=== PATIENT | female | born 1960 | race Caucasian/White ===

== ENCOUNTER → 2016-03-17 | Outpatient (CLI) | payer BC ==
[~2016-03-17] VITALS: Ht 152.4 cm; Wt 105.0 kg
[~2016-03-17] MED LIST: ASPI-232 PO; CHOL100010 PO; CYAN500T PO; DIVA500T3 PO; FOLI1TAB7 PO; GABA-113 PO; NF34 TOP; PROC1TAB5 PO; SULF500T36 PO; VITAMIN B
[2016-03-17 16:05] VITALS: Ht 152.4 cm; Wt 105.0 kg
== END | disposition home or self-care (01) ==
LOC: C.NEUR 14:24
PROVIDERS: ATTEND Internal Medicine Pulmonary Disease
DX: G47.33 Obstructive sleep apnea (adult) (pediatric) (principal); R53.83 Other fatigue

== ENCOUNTER → 2016-04-01 | Outpatient (CLI) | payer BC ==
--- NOTE | 2016-04-01 14:26 | DIAGNOSTIC IMAGING REPORT ---
MRI OF THE BRAIN WITHOUT CONTRAST CLINICAL HISTORY: Memory loss. Migraine headaches. Dizziness. COMPARISON STUDY: None. TECHNIQUE: Utilizing a 1.5 Priscila magnet and dedicated coil, multiplanar, multiecho imaging of the brain was performed without IV contrast. FINDINGS: There are no areas of restricted diffusion. No acute intracranial hemorrhage, midline shift or mass effect is present. Ventricular system is unremarkable. The basilar cisterns are patent. There are no extra-axial collections. Flow-voids for the intracranial vessels are present. This study is mildly compromised by motion artifact. Multiple white matter T2 hyperintense foci suggest mild small vessel disease. There are no intracranial masses on this unenhanced exam. There is a mucous retention cyst within left maxillary sinus. IMPRESSION: 1. No acute intracranial findings. 2. Scattered white matter T2 hyperintense foci which likely reflect small vessel disease. 3. No intracranial mass on this unenhanced exam. Electronically signed by: Main Espino M.D. 04/01/2016 2:25 PM Dictated Date/Time: 04/01/2016 2:20 PM
== END | disposition home or self-care (01) ==
LOC: C.MRIBC 13:45
PROVIDERS: ATTEND Psychiatry & Neurology Neurology
DX: R41.3 Other amnesia (principal)

== ENCOUNTER → 2016-04-27 | Outpatient (CLI) | payer BC | END | disposition home or self-care (01) | LOC: C.LABSPEC 13:30 | PROVIDERS: ATTEND Podiatrist | DX: M72.2 Plantar fascial fibromatosis (principal) ==

== ENCOUNTER → 2016-09-24 | Outpatient (CLI) | payer OTHER ==
--- NOTE | 2016-09-25 12:18 | MAMMOGRAPHY REPORT ---
BILATERAL DIGITAL SCREENING MAMMOGRAM TOMOSYNTHESIS WITH CAD: 09/24/2016 CLINICAL HISTORY: Routine screening. At the time of the exam, the patient reported tenderness and fu llness in the right breast for 4 months as well as a right breast skin rash. TECHNIQUE: Breast tomosynthesis in addition to standard 2D mammography was performed. Current study was also evaluated with a Computer Aided Detection (CAD) system. COMPARISON: Comparison is made to exams dated: 09/24/2015 mammogram, 09/21/2014 mammogram, 09/05/2013 ma mmogram, 09/02/2012 mammogram, 07/13/2011 mammogram, and 07/10/2010 mammogram - [facility] er. BREAST COMPOSITION: There are scattered areas of fibroglandular density in both breasts. FINDINGS: There are minimal vascular calcifications in the breasts. A few scattered benign-appearing microcalcifications. No suspicious mass, architectural distortion or cluster of microcalcifications is seen. IMPRESSION: ACR BI-RADS CATEGORY 1: NEGATIVE 1. Stable bilateral mammograms, without mammographic evidence of malignancy. 2. The patient reported right breast tenderness and fullness for the past 4 months as well as a skin rash. Clinical correlation is recommended and if clinically indicated, right breast ultrasound may be useful. Otherwise, a 1 year screening mammogram is recommended. The patient will receive written notificati on of the results. Approximately 10% of breast cancers are not detected with mammography. A negative mammographic report should not delay biopsy if a clinically suggestive mass is present. Viki Pollock M.D. ay/:09/24/2016 16:52:27 Rn Recruitment: Mariza LAI)(Brad), [facility] letter sent: Normal 1/2 BI-RADS Code: ACR BI-RADS Category 1: Negative
== END | disposition home or self-care (01) ==
LOC: C.MAMM 10:01
PROVIDERS: ATTEND Family Medicine
DX: Z12.31 Encounter for screening mammogram for malignant neoplasm of breast (principal)

== ENCOUNTER → 2016-10-21 | Outpatient (CLI) | payer OTHER ==
[~2016-10-21] MED LIST changes: +GADAVIST IV PRN
--- NOTE | 2016-10-21 19:33 | DIAGNOSTIC IMAGING REPORT ---
Brain and skull base MRI WITH AND WITHOUT CONTRAST HISTORY: TRIGEMINAL NEURALGIA TECHNIQUE: Multiplanar multisequence MRI of the brain and skull base were performed both before and after the intravenous administration of contrast. COMPARISON STUDY: Brain MRI 04/01/2016. FINDINGS: There are no areas of restricted diffusion to suggest acute infarction. The midline structures are intact. The mastoid air cells are clear. The ventricles and sulci are within normal limits for age. There is no mass, hematoma, midline shift. The major vascular flow-voids at the skull base are well maintained. Postcontrast sequences show no areas of abnormal enhancement. There are few scattered punctate foci of T2 hyperintensity seen within the periventricular and subcortical white matter. These are not significant change and favor mild microvascular ischemic change. The bilateral trigeminal nerves are normal in course and caliber. Meckel's caves are within normal limits. Small retention cyst within the left maxillary sinus. 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 This is demonstrated by severe cartilage space narrowing with [id number] articulation and marginal osteophytes. IMPRESSION: 1. No acute intracranial abnormality. 2. Stable nonspecific T2 hyperintense foci within the white matter of the supratentorial brain. This favors microvascular ischemic change. 3. Bilateral trigeminal nerves are normal in course and caliber. 4. 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 Electronically signed by: Matthew Heaton M.D. 10/21/2016 7:31 PM Dictated Date/Time: 10/21/2016 7:24 PM
== END | disposition home or self-care (01) ==
LOC: C.MRI 17:46
PROVIDERS: ATTEND Psychiatry & Neurology Neurology
DX: G50.0 Trigeminal neuralgia (principal); M19.90 Unspecified osteoarthritis, unspecified site

== ENCOUNTER → 2016-11-12 | Outpatient (CLI) | payer OTHER ==
[~2016-11-12] MED LIST changes: -GADAVIST IV PRN
--- NOTE | 2016-11-12 15:39 | MAMMOGRAPHY REPORT ---
ULTRASOUND OF RIGHT BREAST: 11/12/2016 CLINICAL HISTORY: 56 year-old woman reported diffuse right breast pain and a skin rash at time of scr eening on 09/24/2016. The patient reports she's been having diffuse right-sided breast pain for a fe w months. Also noted is skin rash in the inferior breast and subsequent skin biopsy. No nipple disc harge or palpable mass. No family history of breast cancer. COMPARISON: Comparison is made to exams dated: 09/24/2016 mammogram, 09/24/2015 mammogram, 09/21/2014 m ammogram, 09/05/2013 mammogram, 09/02/2012 mammogram, and 07/13/2011 mammogram - [facility] ter. FINDINGS: Real-time high-resolution ultrasound was performed throughout the entire right breast incl uding the retroareolar breast, and right axilla. The breast parenchymal echotexture is heterogeneous dense. There is no evidence of a suspicious solid or cystic right breast mass. The patient reporte d pain while scanning over the 11:00 right breast, 3 cm from the nipple, and 8:00 right breast, 6 cm from the nipple. However, no suspicious abnormality was seen in either of these locations. There is no evidence of suspicious right axillary lymphadenopathy. IMPRESSION: ACR BI-RADS CATEGORY 1: NEGATIVE There is no sonographic evidence of malignancy throughout the right breast on whole breast screening ultrasound. No suspicious right axillary lymphadenopathy is identified. Clinical follow-up is recom mended for the patient's diffuse right mastalgia. Other therapeutic options of NSAIDs, mineral suppl ements and evening primrose oil were also discussed with the patient. These results and recommendations were discussed with the patient at the time of the exam. If there are any or different symptoms at the time of next annual screening mammogram, would recommend remaini ng a diagnostic patient in case any additional supplemental mammographic views and/or ultrasound are needed. Viki Pollock M.D. ay/:11/12/2016 14:54:05 Master Baker: Dr. Viki Pollock, [facility] letter sent: Normal 1/2 BI-RADS Code: ACR BI-RADS Category 1: Negative
== END | disposition home or self-care (01) ==
LOC: C.MAMM 13:33
PROVIDERS: ATTEND Physician Assistant
DX: N64.4 Mastodynia (principal); N64.53 Retraction of nipple

== ENCOUNTER → 2016-11-18 | Outpatient (CLI) | payer OTHER | END | disposition home or self-care (01) | LOC: C.LABSPEC 09:36 | PROVIDERS: ATTEND Obstetrics & Gynecology | DX: L92.8 Other granulomatous disorders of the skin and subcutaneous tissue (principal) ==

== ENCOUNTER → 2016-11-18 | Outpatient (CLI) | payer OTHER | END | disposition home or self-care (01) | LOC: C.PAPS 10:20 | PROVIDERS: ATTEND Obstetrics & Gynecology | DX: Z12.4 Encounter for screening for malignant neoplasm of cervix (principal) ==

== ENCOUNTER → 2016-11-20 | Outpatient (CLI) | payer OTHER ==
[~2016-11-20] VITALS: Ht 157.5 cm; Wt 99.3 kg
[2016-11-20 15:06] VITALS: BP 134/90; PULSE 76; Ht 157.5 cm; Wt 99.3 kg
== END | disposition home or self-care (01) ==
LOC: C.NEUR 14:40
PROVIDERS: ATTEND Internal Medicine Pulmonary Disease
DX: G47.33 Obstructive sleep apnea (adult) (pediatric) (principal)

== ENCOUNTER 2017-03-23 17:10 | Emergency (ER) | payer BC, OTHER ==
[~2017-03-23] VITALS: Ht 157.5 cm; Wt 90.0 kg
[~2017-03-23 17:10] MED LIST changes: -FOLI1TAB7 PO; +FOLI1TAB8 PO
[2017-03-23 17:15] VITALS: TEMP 36.8; Ht 157.5 cm; Wt 90.0 kg
[2017-03-23] MEDS ORDERED: MoRPHine SULFATE 10 MG/ML CARP/VIAL IM STA (17:27)
[2017-03-23] MEDS ORDERED: ONDANSETRON 4MG OD TAB PO ONE (17:30)
[2017-03-23] MEDS ORDERED: MELO15TA4 PO (17:58)
[2017-03-23] MEDS ORDERED: GABA600T PO (18:00)
[2017-03-23] MEDS ORDERED: BACL10TA PO (18:01)
[2017-03-23] MEDS ORDERED: APRE1TAB3 PO (18:02)
[2017-03-23] MEDS ORDERED: METH500T37 PO (18:04)
--- NOTE | 2017-03-23 18:34 | DIAGNOSTIC IMAGING REPORT ---
L HIP UNILATERAL 2 VIEWS CLINICAL HISTORY: LLE pain/paresthesias pain COMPARISON: None. DISCUSSION: Mild degenerative change. No acute bony abnormality. There is no evidence for soft tissue swelling. IMPRESSION: Mild degenerative change. No acute process. The above report was generated using voice recognition software. It may contain grammatical, syntax or spelling errors. Electronically signed by: Augusto Arnold M.D. 03/23/2017 6:33 PM Dictated Date/Time: 03/23/2017 6:33 PM
--- NOTE | 2017-03-23 18:34 | DIAGNOSTIC IMAGING REPORT ---
L KNEE 1 OR 2 VIEWS ROUTINE CLINICAL HISTORY: LLE pain/paresthesias pain COMPARISON: None. DISCUSSION: The bones and joint spaces appear intact. There is no evidence of fracture, dislocation or bony disease. There is no evidence for soft tissue swelling. IMPRESSION: Negative study. The above report was generated using voice recognition software. It may contain grammatical, syntax or spelling errors. Electronically signed by: Augusto Arnold M.D. 03/23/2017 6:32 PM Dictated Date/Time: 03/23/2017 6:32 PM
--- NOTE | 2017-03-23 18:35 | DIAGNOSTIC IMAGING REPORT ---
L-SPINE MIN 4 VIEWS ROUTINE HISTORY: Pain LLE pain/paresthesias COMPARISON: None. FINDINGS: There is no fracture. No subluxation. Mild degenerative disc changes throughout. IMPRESSION: Mild degenerative disc change. No acute process. The above report was generated using voice recognition software. It may contain grammatical, syntax or spelling errors. Electronically signed by: Augusto Arnold M.D. 03/23/2017 6:34 PM Dictated Date/Time: 03/23/2017 6:33 PM
--- NOTE | 2017-03-23 18:36 | DIAGNOSTIC IMAGING REPORT ---
L FOOT MIN 3 VIEWS ROUTINE CLINICAL HISTORY: LLE pain/paresthesias pain COMPARISON: None. DISCUSSION: Mild degenerative change first metatarsophalangeal joint. No acute bony abnormality. Small heel spur. There is no evidence for soft tissue swelling. IMPRESSION: Small heel spur. Mild degenerative change first metatarsophalangeal joint. No acute process. The above report was generated using voice recognition software. It may contain grammatical, syntax or spelling errors. Electronically signed by: Augusto Arnold M.D. 03/23/2017 6:35 PM Dictated Date/Time: 03/23/2017 6:34 PM
--- NOTE | 2017-03-23 18:37 | DIAGNOSTIC IMAGING REPORT ---
R FINGER(S) MIN 2 VIEWS ROUTINE CLINICAL HISTORY: R 4th finger pain pain COMPARISON: None. DISCUSSION: The bones and joint spaces appear intact. There is no evidence of fracture, dislocation or bony disease. Mild soft tissue edema IMPRESSION: Negative study. Mild soft tissue edema The above report was generated using voice recognition software. It may contain grammatical, syntax or spelling errors. Electronically signed by: Augusto Arnold M.D. 03/23/2017 6:35 PM Dictated Date/Time: 03/23/2017 6:35 PM
[2017-03-23] MEDS ORDERED: OXYC1TAB3 PO (19:03)
[2017-03-23] MEDS ORDERED: OXYCODONE IR HOME PACK PO ONE (19:15)
[2017-03-23 19:20] VITALS: BP 139/81; PULSE 87; O2SAT 94
--- NOTE | 2017-03-23 20:36 | EMERGENCY ROOM VISIT NOTE ---
History First contact with patient: 17:20 Chief Complaint: FOOT PAIN Stated Complaint: FELL ON ICE- LT FOOT PAIN, RT 4TH DIGIT PAIN History of Present Illness The patient is a 56 year old female who presents to the Emergency Room with complaints of left lower extremity pain and right ring finger injury after slipping and falling on ice. The patient's , who is a physical therapist , applied a cam walker that the patient has had for her left foot in the past. The patient complains mostly of a burning sensation in the left foot, with primary complaint of left foot pain. She denies head injury, neck pain or back pain. She does have a history of cervical bulging disks in her cervical and lumbar spine. The patient rates her discomfort an 8 out of 10. The patient denies any profound left lower extremity weakness, foot drop, saddle anesthesias or bladder/bowel incontinence. Review of Systems 10 system review was performed and was negative except for pertinent positives and negatives as indicated in history of present illness Past Medical/Surgical History Medical Problems: (1) Age-Related Osteoporosis W/O Current Pathological Fracture (2) Ext Hemorrhoid W/O Compl (3) Int Hemorrhoid W/O Compl (4) Lumbago (5) Migraine, Unsp, Not Intractable, Without Status Migrainosus (6) Mixed Hyperlipidemia (7) Obstructive Sleep Apnea (Adult) (Pediatric) (8) Pneumonia, Organism Nos (9) Polyneuropathy, Unspecified (10) Psoriatic arthritis (11) Radiculopathy, cervical region (12) Tobacco Use Disorder (13) Trigeminal Neuralgia (14) Vitamin D Deficiency Nos Family History FH: cancer FH: kidney disease Social History Smoking Status: Never Smoker Alcohol Use: occasionally Marital Status: Occupation Status: employed Current/Historical Medications Scheduled Apremilast (Otezla), 30 MG PO BID Aspirin (Aspir-81), 81 MG PO DAILY Baclofen (Lioresal), 10 MG PO QAM Cholecalciferol (Vitamin D), 2,000 INTER.UNIT PO DAILY Cyanocobalamin (Vitamin B-12), 500 MCG PO DAILY Gabapentin (Neurontin), 1,200 MG PO TID Meloxicam (Mobic), 15 MG PO HS Scheduled PRN Methocarbamol (Robaxin), 500 MG PO DAILY PRN for Pain Oxycodone Ir (Roxicodone Ir), 1-2 TAB PO Q4H PRN for Pain Prochlorperazine Maleate (Compazine), 10 MG PO Q6H PRN for Headache Physical Exam Vital Signs Date Time Temp Pulse Resp B/P (MAP) Pulse Ox O2 Delivery O2 Flow Rate FiO2 03/23/17 19:20 87 16 139/81 94 03/23/17 19:11 87 16 139/81 94 Room Air 03/23/17 17:15 36.8 79 20 141/90 95 Room Air Physical Exam CONSTITUTIONAL: Healthy and well nourished. Alert and oriented X 3 with positive affect. Patient appears in moderately severe discomfort from left foot pain. HEENT: Normocephalic, atraumatic. Pupils equal, round and reactive. NECK: Full active range of motion without discomfort. RESPIRATORY: Clear to auscultation bilaterally with no wheezing, crackles, rhonchi or stridor. CARDIOVASCULAR: Regular rate and rhythm with no murmurs, rubs or gallops. MUSCULOSKELETAL: Examination shows tenderness to palpation pretty much of the entire left lower extremity. She is significantly tender over the dorsal left foot. She has mild tenderness through the ankle region, gastroc, knee and posterior thigh. She has mild discomfort with logroll of the left hip. Examination of the right hand shows notable ecchymosis and edema of the ring finger. She has no wrist tenderness to palpation. Otherwise no other tenderness to palpation through the central thoracolumbar spine. Distal pulses are intact. INTEGUMENTARY: No rash or other significant dermatologic conditions noted. NEUROLOGIC: Left foot and toes are sensory intact. Medical Decision & Procedures ER Provider Diagnostic Interpretation: My interpretation of left foot, knee, hip and lumbar spine x-rays does not show any obvious fractures or dislocations. My interpretation of right ring finger x-rays also does not show any acute fractures or dislocation. Radiologist reports were also reviewed with concurrence. Medications Administered Medications (Trade) Dose Ordered Sig/Alyssa Route Start Time Stop Time Status Last Admin Dose Admin Morphine Sulfate (MoRPHine SULFATE INJ) 8 mg NOW STAT IM 03/23/17 17:27 03/23/17 17:30 DC 03/23/17 17:41 8 MG Ondansetron HCl (Zofran Odt) 4 mg ONE ONCE PO 03/23/17 17:30 03/23/17 17:31 DC 03/23/17 17:41 4 MG Oxycodone HCl (Roxicodone Immediate Rel 5MG Home Pack) 1 homepack UD ONCE PO 03/23/17 19:15 03/23/17 19:16 DC 03/23/17 19:19 1 HOMEPACK Procedure History and clinical exam are not concerning for cauda equina syndrome. I do not feel that an MRI is warranted at this time. The patient does complain mostly of left foot pain, and does have significant tenderness to palpation, suspicious for a foot sprain or strain. X-rays are not suggestive of fracture within the left lower extremity or lumbar spine. ED Course Patient history and physical exam were performed. Nurse's notes were reviewed. Vital signs were reviewed, showing a mildly elevated blood pressure of 141/ 90. I suspect this is secondary to pain. The patient was administered IM morphine and Zofran 4 mg ODT. X-rays were performed and were normal. I explained to the patient and that although I suspect an injury to the left foot, I am concerned about the burning sensation in the left foot. I explained that this is usually a neurologic symptom, and certainly can be an injury anywhere from the ankle to the lower back. 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 I did suggest close follow-up with orthopedics for further reevaluation. The patient reports reduction of her pain to a 4 out of 10 at the time of discharge. She was provided a home pack and prescription for OxyIR 5 mg. The patient reports that she takes meloxicam at home. She may also add Tylenol as needed for additional pain relief. reports that he has crutches, walker and wheelchair if needed. Both the patient and voiced understanding of all discharge instructions, and were happy with plan of care. Medical Decision Impression Primary Impression: Lower extremity pain, left Additional Impressions: Contusion of ring finger Left foot pain Fall due to slipping on ice or snow Departure Information Dispostion Home / Self-Care Prescriptions Oxycodone Ir (Roxicodone Ir) 5 Mg Tab 1-2 TAB PO Q4H Y for Pain, #15 TAB For Initial Treatment Prov: Nura Beasley PA 03/23/17 Referrals Yosef Wharton M.D. Forms HOME CARE DOCUMENTATION FORM, IMPORTANT VISIT INFORMATION Patient Instructions My [facility] Additional Instructions Intermittently apply ice to areas of discomfort. Wear walking boot and use crutches/walker as needed. Continue with meloxicam (Mobic) as previous he prescribed. Tylenol 1000 mg every 6-8 hours as needed for additional pain relief. OxyIR for worse pain. Do not drink or drive while taking OxyIR. Follow-up with [facility] for further reevaluation and management - call tomorrow morning for an appointment. FOR WORK: Please excuse from work until reevaluated by orthopedics. Problem Qualifiers Additional Impressions: Contusion of ring finger Encounter type: initial encounter Damage to nail status: without damage Laterality: right Qualified Codes: S60.041A - Contusion of right ring finger without damage to nail, initial encounter Fall due to slipping on ice or snow Encounter type: initial encounter Qualified Codes: W00.9XXA - Unspecified fall due to ice and snow, initial encounter
== END 2017-03-23 19:20 | disposition home or self-care (01) ==
LOC: C.EDB 17:12 → C.EDD 19:20
DX: M79.672 Pain in left foot (principal); S60.041A Contusion of right ring finger without damage to nail, initial encounter; W00.9XXA Unspecified fall due to ice and snow, initial encounter; M81.0 Age-related osteoporosis without current pathological fracture; E55.9 Vitamin D deficiency, unspecified; Z87.01 Personal history of pneumonia (recurrent); Z79.82 Long term (current) use of aspirin

== ENCOUNTER → 2017-03-31 | Outpatient (CLI) | payer BC, OTHER ==
[~2017-03-31] MED LIST changes: +APRE1TAB3 PO; +BACL10TA PO; -DIVA500T3 PO; -FOLI1TAB8 PO; -GABA-113 PO; +GABA600T PO; +MELO15TA4 PO; +METH500T37 PO; -NF34 TOP; +OXYC1TAB3 PO; -SULF500T36 PO; -VITAMIN B
== END | disposition home or self-care (01) ==
LOC: C.RDSM 20:21
PROVIDERS: ATTEND Physical Medicine & Rehabilitation Sports Medicine
DX: S92.325A Nondisplaced fracture of second metatarsal bone, left foot, initial encounter for closed fracture (principal); X58.XXXA Exposure to other specified factors, initial encounter

== ENCOUNTER → 2017-04-23 | Outpatient (CLI) | payer BC ==
[~2017-04-23] MED LIST changes: +MELO-84 PO; -MELO15TA4 PO
== END ==
LOC: C.RDSM 07:35
PROVIDERS: ATTEND Physical Medicine & Rehabilitation Sports Medicine
DX: S60.041A Contusion of right ring finger without damage to nail, initial encounter (principal); S92.325A Nondisplaced fracture of second metatarsal bone, left foot, initial encounter for closed fracture; X58.XXXA Exposure to other specified factors, initial encounter

== ENCOUNTER → 2017-04-23 | Outpatient (CLI) | payer BC ==
[2017-04-23 09:35] LABS: BASO % 0.6 %; BASO ABS # 0.04 K/uL (0-0.2); EOS % 3.6 %; EOS ABS # 0.23 K/uL (0-0.5); HEMATOCRIT 42.2 % (37-47); HEMOGLOBIN 14.1 g/dL (12.0-16.0); IG# 0.01 K/uL (0.00-0.02); LYMPH % 36.3 %; LYMPH ABS # 2.33 K/uL (1.2-3.4); MEAN CELL VOLUME 88.3 fL (80-100); MEAN CORPUSCULAR HEMOGLOBIN 29.5 pg (25-34); MEAN CORPUSCULAR HGB CONC 33.4 g/dl (32-36); MEAN PLATELET VOLUME 12.3 fL (7.4-10.4); MONO % 6.7 %; MONO ABS # 0.43 K/uL (0.11-0.59); NEUT % 52.6 %; NEUT ABS # 3.38 K/uL (1.4-6.5); PLATELET COUNT 220 K/uL (130-400); RED CELL DISTRIBUTION WIDTH CV 13.4 % (11.5-14.5); RED CELL DISTRIBUTION WIDTH SD 43.5 fL (36.4-46.3); WHITE BLOOD COUNT 6.42 K/uL (4.8-10.8)
[2017-04-23 09:48] LABS: ALBUMIN 3.9 gm/dl (3.4-5.0); ALT/SGPT 30 U/L (12-78); AST/SGOT 17 U/L (15-37); BLOOD UREA NITROGEN 24 mg/dl (7-18); CALCIUM 9.4 mg/dl (8.5-10.1); CARBON DIOXIDE 26 mmol/L (21-32); CREATININE 0.72 mg/dl (0.60-1.20); GLUCOSE 93 mg/dl (70-99); SODIUM 141 mmol/L (136-145); TOTAL PROTEIN 7.3 gm/dl (6.4-8.2)
[2017-04-23 09:58] LABS: ALKALINE PHOSPHATASE 87 U/L (45-117)
== END ==
LOC: C.LAB1850 06:57
PROVIDERS: ATTEND Internal Medicine
DX: E55.9 Vitamin D deficiency, unspecified (principal); R53.83 Other fatigue; Z00.00 Encounter for general adult medical examination without abnormal findings; R41.89 Other symptoms and signs involving cognitive functions and awareness; L40.50 Arthropathic psoriasis, unspecified

== ENCOUNTER → 2017-06-02 | Outpatient (CLI) | payer BC | END | disposition home or self-care (01) | LOC: C.RDSM 16:38 | PROVIDERS: ATTEND Physical Medicine & Rehabilitation Sports Medicine | DX: S90.32XA Contusion of left foot, initial encounter (principal); X58.XXXA Exposure to other specified factors, initial encounter ==